=== PATIENT | female | born 1970 | race Caucasian/White ===

== ENCOUNTER 2020-04-21 20:57 | Emergency (ER) | payer OTHER, SELFPAY ==
--- NOTE | ~2020-04-21 | XR_ITS ---
EXAMINATION: XR hand RT min 3V DATE: 04/21/2020 22:21 INDICATION: Pain and swelling at the fourth and fifth metacarpals post fall TECHNIQUE: Posteroanterior, oblique and lateral views of the right hand were obtained. COMPARISON: None. FINDINGS: Alignment is normal. No fracture. 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 Soft tissue swelling at the base of the digits. IMPRESSION: 1. 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 No acute osseous abnormality. Reviewed, dictated and finalized at location A. IMPRESSION: 1. 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 No acute os seous abnormality.
--- NOTE | ~2020-04-21 | CT_ITS ---
EXAMINATION: CT facial bones wo con DATE: 04/21/2020 22:04 INDICATION: Facial pain post fall TECHNIQUE: Computed tomography (CT) of the facial bones and maxillofacial region was performed withou t intravenous contrast. Coronal reconstructions were obtained. Automated exposure control and iterati ve reconstruction technique were employed. The dose-length product was 562.85 mGy-cm. COMPARISON: None. FINDINGS: Small anterior right frontal scalp hematoma near the midline. No calvarial fracture. There is a sigmo id configuration of the nasal septum on both the axial and coronal images but without a definitive ac [place] appearing fracture or significant overlying mucosal thickening to suggest acute fracture in this is more likely either developmental or sequela of old trauma. No acute maxillofacial fractures identi fied. Temporomandibular joints are in normal alignment. Orbits are normal. Mastoid air cells and midd le ear cavities are clear. Visualized portions of the brain are unremarkable. Visualized upper cervic al spine is unremarkable. IMPRESSION: 1. No acute fractures identified. Reviewed, dictated and finalized at location A.
--- NOTE | ~2020-04-21 | XR_ITS ---
EXAMINATION: XR knee LT 3V DATE: 04/21/2020 22:22 INDICATION: Medial left knee bruising and swelling post fall TECHNIQUE: Anteroposterior, oblique and crosstable lateral views of the left knee were obtained COMPARISON: None. FINDINGS: Alignment is normal. No fracture. Mild osteoarthritis in the medial compartment of the left knee wit h small marginal osteophytes and at least mild joint space narrowing on the oblique image. No joint e ffusion/layering lipohemarthrosis. IMPRESSION: 1. No left knee joint effusion or acute osseous abnormality. Reviewed, dictated and finalized at location A.
[2020-04-21 20:59] VITALS: BP 203/111; PULSE 111; RESP 14; TEMP 36.5; O2SAT 97
--- NOTE | 2020-04-21 21:50 | ED.FALL ---
HPI - Fall General Chief Complaint: Fall Stated Complaint: head injury/fall Time Seen by Provider: 04/21/20 21:41 Source: patient and family History of Present Illness HPI Narrative: Patient is 50 years old white female, tripped and fell landed on her face. Complaining of left knee, right hand and facial pain. No loss of consciousness, no blood thinner. Patient refused to take any pain medication at this time. Patient denies any nausea or vomiting or headache. MD complaint: fall Related Data Home Medications Medication Instructions Recorded Confirmed infliximab 100 mg intravenous IVPB 02/05/20 solution Allergies Allergy/AdvReac Type Severity Reaction Status Date / Time No Known Allergies Allergy Verified 04/21/20 21:07 Review of Systems Review of Systems: Narrative: CONSTITUTIONAL: Denies fever, chills, or sweats. EYES: Denies visual changes, redness, or discharge. ENT: Denies rhinorrhea, congestion, sore throat, or otalgia. CARDIOVASCULAR: Denies chest pain, palpitations, or edema. RESPIRATORY: Denies cough or dyspnea. GASTROINTESTINAL: Denies abdominal pain, nausea, vomiting, or diarrhea. GENITOURINARY: Denies dysuria or hematuria. SKIN: Denies rash or itching. MUSCULOSKELETAL: Denies back pain, joint pain, or myalgia. NEUROLOGIC: Denies headache, numbness, or weakness. PSYCHIATRIC: Denies anxiety or depression. [facility] Social History Social History Smoking status: Never smoker Alcohol intake: never Exam Narrative: Exam Narrative: General appearance: Well-developed, well-nourished Skin: Normal color Head: Normocephalic, nontraumatic Eyes: Clear conjunctiva ENT: Oropharynx normal, ears normal, nose normal Neck: Supple, nontender Chest and respiratory: Airway patent, no respiratory distress, no accessory muscle use Heart: Regular rate/rhythm Abdomen: Soft, nontender, no organomegaly, quiet bowel sounds Vascular: Normal peripheral pulses, normal capillary refill. Musculoskeletal: Facial bruises, forehead hematoma, nasal contusion, no active bleeding. Right middle finger tenderness, no bruises, no swelling or deformity. Left knee tenderness anteriorly, slightly swelling, no bruises no laceration. Limited range of motion. Neurologic: Alert and oriented ?3, [employer] CONSULTANT is normal as tested, no gross motor deficit Course Course Emergency Course: Stable Vital Signs Vital signs: Vital Signs Temperature 36.5 C 04/21/20 20:59 Pulse Rate 111 H 04/21/20 20:59 Respiratory Rate 14 04/21/20 20:59 Blood Pressure 203/111 H 04/21/20 20:59 Pulse Oximetry 97 04/21/20 20:59 Temperature 36.5 C 04/21/20 20:59 Pulse Rate 111 H 04/21/20 20:59 Respiratory Rate 14 04/21/20 20:59 Blood Pressure 203/111 H 04/21/20 20:59 Pulse Oximetry 97 04/21/20 20:59 MDM - Fall MDM Narrative Medical decision making narrative: Contusion, sprain is my concern. X-ray left knee, right hand, CT facial bone ordered. Further plan to follow Imaging Data Radiologist's impression: X-ray of left knee, x-ray of right hand and CAT scan of the facial bones showed no acute abnormalities. Patient Critical Care Time Critical Care Time Critical Care Time: No Discharge Plan Discharge Clinical Impression: Fall Qualifiers: Encounter type: initial encounter Qualified Code(s): W19.XXXA - Unspecified fall, initial encounter Contusion of face Qualifiers: Encounter type: subsequent encounter Qualified Code(s): S00.83XD - Contusion of other part of head, subsequent encounter Contusion of knee, left Qualifiers: Encounter type: subsequent encounter Qualified Code(s): S80.02XD - Contusi
[2020-04-21 23:15] VITALS: BP 178/89; PULSE 87; RESP 16; O2SAT 99
== END 2020-04-21 23:16 | disposition home or self-care (01) ==
PROVIDERS: Emergency Provider Emergency Medicine; PCP Internal Medicine
DX: S00.83XA Contusion of other part of head, initial encounter (principal); S80.02XA Contusion of left knee, initial encounter; S60.221A Contusion of right hand, initial encounter; W01.0XXA Fall on same level from slipping, tripping and stumbling without subsequent striking against object, initial encounter
CPT/HCPCS: 70486; 73130; 73562; 99284; A9270

== ENCOUNTER 2021-05-16 08:41 | Emergency (ER) | payer OTHER, SELFPAY ==
--- NOTE | ~2021-05-16 | XR_ITS ---
EXAMINATION: XR knee LT min 4V DATE: 05/16/2021 09:47 INDICATION: Left knee injury and pain. TECHNIQUE: 4 views of left knee were obtained. COMPARISON: Left knee radiographs 04/21/2020 FINDINGS: Bone alignment is normal. No fracture. There is mild tricompartmental osteoarthritis. There is a small knee joint effusion. IMPRESSION: 1. Mild left knee osteoarthritis. 2. Small left knee joint effusion. Reviewed, dictated and finalized at location A.
[2021-05-16 09:05] VITALS: BP 162/111; PULSE 103; RESP 20; TEMP 36.3; O2SAT 95
--- NOTE | 2021-05-16 10:18 | ED.LOWEXIN ---
HPI - Extremity Injury (Lower) General Chief Complaint: Extremity Injury, Lower Stated Complaint: LEFT KNEE PAIN Time Seen by Provider: 05/16/21 09:36 Source: patient Mode of arrival: wheelchair Limitations: no limitations History of Present Illness HPI Narrative: Patient is a 51-year-old female who presents complaining of left knee pain. She reports twisting left knee last p.m. in which she heard a pop. She reports pain and difficulty with ambulation after. She reports no other injuries. She denies significant medical history. MD complaint: knee injury Related Data Home Medications Medication Instructions Recorded Confirmed infliximab 100 mg intravenous IVPB 02/05/20 solution Allergies Allergy/AdvReac Type Severity Reaction Status Date / Time No Known Allergies Allergy Verified 05/16/21 09:05 Review of Systems Review of Systems: Narrative: CONSTITUTIONAL: Denies fever, chills, or sweats. EYES: Denies visual changes, redness, or discharge. ENT: Denies rhinorrhea, congestion, sore throat, or otalgia. CARDIOVASCULAR: Denies chest pain, palpitations, or edema. RESPIRATORY: Denies cough or dyspnea. GASTROINTESTINAL: Denies abdominal pain, nausea, vomiting, or diarrhea. GENITOURINARY: Denies dysuria or hematuria. SKIN: Denies rash or itching. MUSCULOSKELETAL: Reports left knee pain NEUROLOGIC: Denies headache, numbness, dizziness, or weakness. PSYCHIATRIC: Denies anxiety or depression. [facility] Past Medical History Medical History (Updated 05/16/21 @ 10:24 by PATEL Pérez) Crohn's disease Social History Social History (Updated 05/16/21 @ 10:20 by PATEL Pérez) Smoking status: Never smoker Alcohol intake: never Substance use: never Living arrangements: with family Occupation/Education: occupation Gender identity (if verbalized by the patient): Female Exam Narrative: Exam Narrative: GENERAL: Well-appearing, well-nourished, and in no acute distress. HEAD: Normocephalic, atraumatic. EYES: EOMI. No redness or drainage. Conjunctiva are normal. ENT: Mucous membranes pink and moist. CHEST: No respiratory distress. Clear to auscultation. HEART: Regular rate and rhythm. No murmur appreciated. Normal peripheral pulses. EXTREMITIES: Normal range of motion. Mild edema to the left anterior knee. Distal sensation intact, good pedal pulse, good capillary refill SKIN: Warm, dry, no rash. NEURO: No focal deficits. Alert and oriented x3. Gait steady. PSYCH: Normal affect. No signs of depression or anxiety. Course Vital Signs Vital signs: Vital Signs Temperature 36.3 C L 05/16/21 09:05 Pulse Rate 103 H 05/16/21 09:05 Respiratory Rate 20 05/16/21 09:05 Blood Pressure 162/111 H 05/16/21 09:05 Pulse Oximetry 95 05/16/21 09:05 Temperature 36.3 C L 05/16/21 09:05 Pulse Rate 103 H 05/16/21 09:05 Respiratory Rate 20 05/16/21 09:05 Blood Pressure 162/111 H 05/16/21 09:05 Pulse Oximetry 95 05/16/21 09:05 Reviewed-patient is informed that they may have pre-hypertension or hypertension based on a blood pressure reading. I recommend the patient call the primary care provider listed on their discharge instructions or a physician of their choice this week to arrange follow-up for further evaluation of possible pre-hypertension or hypertension. MDM - Extremity Injury (Lower) MDM Narrative Medical decision making narrative: Patient's x-ray shows no acute osseous abnormality. Mild osteoarthritis and small effusion noted per x-ray, correlates with physical exam. Discussed with patient most likely soft tissue injury. Discussed using Bertrand wrap, ice and pain medication. Patient aware of the need to follow-up with orthopedics. Patient agrees with plan of care. Patient is stable for discharge home with outpatient follow-up as discussed. Differential Diagnosis Differential diagnosis: Likely other (Sprain, strain, contusion contusion, fracture) Imaging Data Radiologist'
[2021-05-16 10:54] VITALS: BP 162/98; PULSE 98; RESP 20; O2SAT 99
== END 2021-05-16 10:56 | disposition home or self-care (01) ==
PROVIDERS: Emergency Provider Nurse Practitioner; PCP Internal Medicine
DX: M25.562 Pain in left knee (principal); K50.90 Crohn's disease, unspecified, without complications; M17.12 Unilateral primary osteoarthritis, left knee
CPT/HCPCS: 73564; 99283

== ENCOUNTER → 2021-05-26 13:07 | Outpatient (CLI) | payer OTHER, SELFPAY ==
--- NOTE | ~2021-05-26 | MR_ITS ---
EXAMINATION: MR knee LT wo con DATE: 05/26/2021 14:57 INDICATION: Left knee pain TECHNIQUE: Magnetic resonance imaging (MRI) of the left knee was performed without intravenous contra st. Sequences included coronal PD-weighted FSE, coronal PD-weighted FS FSE, sagittal T2-weighted FSE , sagittal PD-weighted FS FSE and axial PD weighted fat saturated FSE. COMPARISON: Left knee radiographs dated 05/16/2021 FINDINGS: Medial compartment: Medial meniscus is normal. Partial-thickness chondral ulceration at the central weightbearing medial femoral condyle without degenerative subchondral changes. Small marginal osteophytes are present. Lateral compartment: Lateral meniscus is normal. Additional partial thickness chondral ulceration along the anterior weigh tbearing lateral femoral condyle. Partial thickness chondral fissuring at the posterior margin of the lateral tibial plateau. Patellofemoral compartment: Small region of deep chondral fissuring without degenerative subchondral changes at the lateral hanks lar facet. Partial-thickness chondral ulceration centered along the trochlear groove with additional partial thickness chondral fissuring at the lateral trochlea. Ligaments and tendons: Anterior and posterior cruciate ligaments are normal. Mild thickening of the proximal medial collater al ligament with minimal surrounding edema consistent with low-grade sprain. The fibular collateral l igament is normal. The extensor mechanism is normal. The visualized medial and lateral hamstring tend ons as well as the iliotibial band are normal. Fluid: Moderate-sized knee joint effusion. No loose osteochondral bodies identified. Osseous/other: Mild cystic change within sclerotic margins at the intercondylar eminence the posterior footplate of the anterior cruciate ligament. Small regions of distal femoral mild red marrow reconversion. No frac ture or pathologic marrow replacing process. IMPRESSION: 1. Low-grade sprain of the proximal medial collateral ligament. 2. Mild osteoarthritis with regions of moderate grade chondromalacia in all 3 compartments. 3. Moderate-sized left knee joint effusion. Reviewed, dictated and finalized at location A. IMPRESSION: 1. Low-grade sprain of the proximal medial collateral ligament. 2. Mild osteoarthritis with regions of moderate grade chondromalacia in all 3 c ompartments. 3. Moderate-sized left knee joint effusion.
== END ==
PROVIDERS: PCP Internal Medicine; Visit Provider Orthopaedic Surgery
DX: M25.462 Effusion, left knee (principal); M17.12 Unilateral primary osteoarthritis, left knee; S83.412A Sprain of medial collateral ligament of left knee, initial encounter; X58.XXXA Exposure to other specified factors, initial encounter
CPT/HCPCS: 73721

== ENCOUNTER 2022-09-13 01:00 | Outpatient (NON) | payer OTHER, SELFPAY | END 2022-09-13 01:01 | disposition home or self-care (01) | PROVIDERS: PCP Internal Medicine; Visit Provider Nurse Practitioner | DX: L72.0 Epidermal cyst (principal) | CPT/HCPCS: 88304 ==

== ENCOUNTER 2023-01-23 17:01 | Emergency (ER) | payer OTHER, SELFPAY ==
[2023-01-23 17:10] VITALS: BP 162/98; PULSE 93; RESP 16; TEMP 36.8; O2SAT 96
--- NOTE | 2023-01-23 17:18 | ED.URI ---
HPI - URI/Sore Throat General Chief Complaint: Upper Respiratory Infection Stated Complaint: SORE THROAT Time Seen by Provider: 01/23/23 17:15 Source: patient Mode of arrival: ambulatory Limitations: no limitations History of Present Illness HPI Narrative: 52-year-old female presents with complaint fatigue, headache, body aches, fatigue, sore throat for 1 week. Patient reports that sore throat is getting progressively worse. 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 She states she feels like she is swelling ?razor blades ?. Would like a strep swab today. All systems reviewed and negative except as noted above. Related Data Home Medications Medication Instructions Recorded Confirmed infliximab 100 mg intravenous 100 mg IV WEEKLY 02/05/20 01/23/23 solution (Remicade) metformin 500 mg tablet,extended 500 mg PO DIRECTED 01/23/23 01/23/23 release 24 hr Allergies Allergy/AdvReac Type Severity Reaction Status Date / Time No Known Allergies Allergy Verified 01/23/23 17:16 Review of Systems Review of Systems: CONSTITUTIONAL: Reports fever, chills, or sweats. EYES: Denies visual changes, redness, or discharge. ENT: Reports rhinorrhea, congestion, sore throat. Denies otalgia. CARDIOVASCULAR: Denies chest pain, palpitations, or edema. RESPIRATORY: Denies cough or dyspnea. GASTROINTESTINAL: Denies abdominal pain, nausea, vomiting, or diarrhea. GENITOURINARY: Denies dysuria or hematuria. SKIN: Denies rash or itching. MUSCULOSKELETAL: Denies back pain, joint pain, or myalgia. NEUROLOGIC: Denies headache, numbness, or weakness. PSYCHIATRIC: Denies anxiety or depression. All other systems reviewed are negative, except as documented in HPI. COUNT INCLUDES [facility] Past Medical History Medical History Anxiety Asthma Crohn's disease History of bladder disorder Left knee pain DENISE (obstructive sleep apnea) Wears glasses Weight gain Surgical History Surgical History History of cholecystectomy History of tubal ligation Social History Social History Smoking status: Unknown if ever smoked Alcohol intake: never Substance use: never Living arrangements: with family Occupation/Education: occupation Gender identity (if verbalized by the patient): Female Comments At time of signature, agree with nursing past medical, surgical, social and family history. There is no relevant family history pertinent to the presenting complaint. Exam Narrative: GENERAL: This is a well-nourished, well-developed patient, in no apparent distress. HEAD: normocephalic, atraumatic. EYES: PERRL. Sclera clear/white. Vision is grossly intact. EARS: External ears normal, auditory canals clear and without drainage, TMs normal without perforation. Hearing grossly intact. NOSE: External nose normal with no obvious nasal discharge, nares without redness, no rhinorrhea. THROAT: Mucous membranes moist, erythematous, swelling. Tonsils 2+ bilaterally without exudates. NECK: Neck supple, non-tender without lymphadenopathy, masses or thyromegaly. CARDIOVASCULAR: Regular rate and rhythm without murmurs, gallops, or rubs. RESPIRATORY: Clear to auscultation. Breath sounds equal bilaterally. No wheezes, rales, or rhonchi. SKIN: warm, Dry, intact with no suspicious lesions or rash, good texture and turgor. NEURO: awake, alert, and oriented to person, place and time. There were no obvious focal neurologic abnormalities. EXTREMITIES: No joint tenderness, effusion, or edema noted. Course Course Level of Care: Express Care Visit Vital Signs Vital signs: Vital Signs Temperature 36.8 C 01/23/23 17:10 Pulse Rate 93 01/23/23 17:10 Respiratory Rate 16 01/23/23 17:10 Blood Pressure 162/98 H 01/23/23 17:10 Pulse Oximetry 96 03
== END 2023-01-23 17:32 | disposition home or self-care (01) ==
PROVIDERS: Emergency Provider Nurse Practitioner Family; PCP Internal Medicine
DX: J02.0 Streptococcal pharyngitis (principal); Z79.84 Long term (current) use of oral hypoglycemic drugs
CPT/HCPCS: 87880; 99213; G0463

== ENCOUNTER 2023-08-12 15:47 | Emergency (ER) | payer OTHER, SELFPAY ==
[2023-08-12 15:59] VITALS: BP 152/92; PULSE 75; RESP 16; TEMP 36.2; O2SAT 100
--- NOTE | 2023-08-12 16:01 | ED.FEMALEGU ---
HPI - Female Genitourinary General Chief complaint: Urogenital-Female Stated complaint: UTI SYMPTOMS Source: patient and RN notes reviewed Mode of arrival: ambulatory Limitations: no limitations History of Present Illness HPI Narrative: 53-year-old female presented for complaint of burning at the end of urination and urgency, onset 2 days. Denies abdominal pain, flank pain, nausea vomiting diarrhea, fevers or chills. Related Data Home Medications Medication Instructions Recorded Confirmed infliximab 100 mg intravenous 100 mg IV WEEKLY 02/05/20 01/23/23 solution (Remicade) metformin 500 mg tablet,extended 500 mg PO DIRECTED 01/23/23 01/23/23 release 24 hr Allergies Allergy/AdvReac Type Severity Reaction Status Date / Time No Known Allergies Allergy Verified 01/23/23 17:16 Review of Systems Review of Systems: CONSTITUTIONAL: Denies body aches, fever, chills, or sweats. CARDIOVASCULAR: Denies chest pain, palpitations, or edema. RESPIRATORY: Denies cough or dyspnea. GASTROINTESTINAL: Denies abdominal pain, nausea, vomiting, or diarrhea. GENITOURINARY: Reports dysuria, urgency, denies frequency, hematuria, flank pain SKIN: Denies rash, itching, or wounds. MUSCULOSKELETAL: Denies back pain or myalgia. [facility] Past Medical History Medical History Anxiety Asthma Crohn's disease History of bladder disorder Left knee pain DENISE (obstructive sleep apnea) Wears glasses Weight gain Surgical History Surgical History History of cholecystectomy History of tubal ligation Social History Social History Smoking status: Unknown if ever smoked Alcohol intake: never Substance use: never Living arrangements: with family Occupation/Education: occupation Gender identity (if verbalized by the patient): Female Comments At time of signature, I have reviewed and agree with nursing past medical, surgical, social and family history unless otherwise noted. Please see nursing chart for further information. There is no relevant family history pertinent to the presenting complaint Exam Narrative: GENERAL: Well-appearing and in no acute distress. HEAD: Normocephalic EYES: EOMI. . ENT: Mucous membranes pink and moist. NECK: Normal AROM. Supple. CHEST: No respiratory distress. Clear to auscultation. HEART: Regular rate and rhythm. ABDOMEN: Soft, nontender, nondistended, normal active bowel sounds. No CVA tenderness MUSCULOSKELETAL: No bony tenderness. SKIN: Warm, dry, no rash. NEURO: No focal deficits. Alert and oriented x3. Gait steady. PSYCH: Normal affect. Course Course Emergency Course: Patient is aware of diagnosis, understands and agrees to treatment plan. Anticipatory guidance given. Patient agrees to follow-up as directed and is aware of reasons to seek care at the emergency department. Portions of this record may have been created with voice recognition software Level of Care: Express Care Visit Vital Signs Vital signs: Vital Signs Temperature 97.2 F L 08/12/23 15:59 Pulse Rate 75 08/12/23 15:59 Respiratory Rate 16 08/12/23 15:59 Blood Pressure 152/92 H 08/12/23 15:59 Pulse Oximetry 100 08/12/23 15:59 Temperature 97.2 F L 08/12/23 15:59 Pulse Rate 75 08/12/23 15:59 Respiratory Rate 16 08/12/23 15:59 Blood Pressure 152/92 H 08/12/23 15:59 Pulse Oximetry 100 08/12/23 15:59 Reviewed MDM - Female Genitourinary MDM Narrative Medical decision making narrative: Discussed urine findings, rx abx. Advised supportive measures and signs/symptoms to go to the ER. Pt is appropriate for outpt treatment and f/u. Differential Diagnosis Differential diagnosis: Likely urinary tract infection, cystitis and other Discharge Plan Discharge Clinical Impression: Urinary tract infect
== END 2023-08-12 16:18 | disposition home or self-care (01) ==
PROVIDERS: Emergency Provider Nurse Practitioner Family; PCP Internal Medicine
DX: N39.0 Urinary tract infection, site not specified (principal); B96.20 Unspecified Escherichia coli [E. coli] as the cause of diseases classified elsewhere; J45.909 Unspecified asthma, uncomplicated; K50.90 Crohn's disease, unspecified, without complications
CPT/HCPCS: 81003; 87077; 87086; 87186; 99213; G0463

== ENCOUNTER 2024-08-21 16:48 | Emergency (ER) | payer OTHER, SELFPAY ==
[2024-08-21 16:58] VITALS: BP 158/83; PULSE 83; RESP 16; TEMP 36.5; O2SAT 99
--- NOTE | 2024-08-21 17:07 | ED.EXTPRO ---
HPI - Extremity Problem General Chief complaint: Skin/Abscess/Foreign Body Stated complaint: painful swollen rt thumb Time Seen by Provider: 08/21/24 17:05 Source: patient, RN notes reviewed and old records reviewed Mode of arrival: ambulatory Limitations: no limitations History of Present Illness HPI Narrative: 54 year old female who presents to [facility] care with complaints of 2 week duration of swelling with redness and discomfort to right thumb nail bed. with increased symptoms of yellowish pustular drainage this week. Patient reports that pain has increased to her right thumb and swelling with drainage around nail bed noted,no fevers chills or sweats. Pain increases if right thumb nail bed is palpated or if she accidently bumps it. Patient reports that she has cleansed her thumb and has been applying NANO ointment and band-aid. MD Complaint: other (right thumb nail bed red swollen and draining) Onset (ago): week(s) (2) Pain Consistency: constant Location: right and upper extremity (thumb) Severity scale (1-10): 4 Quality: aching and other (throbbing at times) Related Data Allergies Allergy/AdvReac Type Severity Reaction Status Date / Time No Known Allergies Allergy Verified 08/21/24 17:10 Review of Systems Review of Systems: CONSTITUTIONAL: Denies fever, chills, or sweats. EYES: Denies visual changes, redness, or discharge. ENT: Denies rhinorrhea, congestion, sore throat, or otalgia. CARDIOVASCULAR: Denies chest pain, palpitations, or edema. RESPIRATORY: Denies cough or dyspnea. GASTROINTESTINAL: Denies abdominal pain, nausea, vomiting, or diarrhea. GENITOURINARY: Denies dysuria or hematuria. SKIN: positive for redness. swelling along nail bed of right thumb with some purulent drainage noted and pain. MUSCULOSKELETAL: Denies back pain, joint pain, or myalgia. NEUROLOGIC: Denies headache, numbness, or weakness. PSYCHIATRIC: Denies anxiety or depression. All systems reviewed & are unremarkable except as noted in HPI and below PMFSH Past Medical History Medical History Anxiety Asthma Crohn's disease History of bladder disorder Left knee pain DENISE (obstructive sleep apnea) Wears glasses Weight gain Surgical History Surgical History History of cholecystectomy History of tubal ligation Social History Social History (Updated 08/21/24 @ 18:44 by Estella Spaulding NP) Smoking status: Never smoker Alcohol intake: never Substance use: never Living arrangements: with family Occupation/Education: occupation Gender identity (if verbalized by the patient): Female Comments At time of signature, agree with nursing past medical, surgical, social and family history. There is no relevant family history pertinent to the presenting complaint Exam Narrative: GENERAL: Well-appearing, well-nourished, and in no acute distress.TM's normal throat pink with no swelling HEAD: Normocephalic, atraumatic. EYES: PERRLA and EOMI. ENT: Nares clear, no rhinorrhea or epistaxis. Mucous membranes moist. NECK: Supple. no lymphadenopathy CHEST: Clear to auscultation. No respiratory distress. SAO2 99% on room air HEART: Regular rate and rhythm. No murmur heard. Normal peripheral pulses. ABDOMEN: Soft, nontender, nondistended, normal active bowel sounds. EXTREMITIES: Normal range of motion. No edema. Moves all extremities on own power with CMS intact SKIN: Warm, dry, swelling noted to nail bed of right thumb with some redness and purulent drainage noted, no fevers, tender on palpation. NEURO: No focal deficits. Alert and oriented x3. Course Course Emergency Course: Patient is aware of diagnosis, understands and agrees to treatment plan.? Anticipatory guidance given.? Patient agrees to follow-up as directed and is aware of reasons to seek care at the emergency department. Portions of this record may have been created w
== END 2024-08-21 17:20 | disposition home or self-care (01) ==
PROVIDERS: Emergency Provider Registered Nurse; PCP Internal Medicine
DX: L03.011 Cellulitis of right finger (principal); J45.909 Unspecified asthma, uncomplicated; K50.90 Crohn's disease, unspecified, without complications
CPT/HCPCS: 99213; G0463